=== PATIENT | female | born 1980 | race Caucasian/White ===

== ENCOUNTER 2019-12-04 01:18 | Emergency (ER) | payer OTHER ==
[~2019-12-04] VITALS: Ht 165.1 cm; Wt 123.8 kg
[2019-12-04 01:23] VITALS: Ht 165.1 cm; Wt 123.8 kg
[2019-12-04 04:05] VITALS: BP 162/105
== END 2019-12-04 04:05 | disposition home or self-care (01) ==
LOC: ED 01:18
DX: M54.5 Low back pain (principal); I10 Essential (primary) hypertension; Z98.890 Other specified postprocedural states; Z88.0 Allergy status to penicillin; Z88.5 Allergy status to narcotic agent
CPT/HCPCS: J1885

== ENCOUNTER 2020-01-13 06:02 | Emergency (ER) | payer OTHER ==
[~2020-01-13] VITALS: Ht 165.1 cm; Wt 118.6 kg
[2020-01-13 06:19] VITALS: Ht 165.1 cm; Wt 118.6 kg
[2020-01-13 07:20] VITALS: BP 195/108
== END 2020-01-13 07:20 | disposition home or self-care (01) ==
LOC: ED 06:02
DX: M54.5 Low back pain (principal); I10 Essential (primary) hypertension; Z88.0 Allergy status to penicillin; Z88.5 Allergy status to narcotic agent; Z90.89 Acquired absence of other organs
CPT/HCPCS: J3010; Q0162